=== PATIENT | female | born 1965 | race American Indian/Alaskan Native ===

== ENCOUNTER 2016-06-11 13:40 | Outpatient (CLI) | payer BC ==
--- NOTE | 2016-06-11 14:52 | Fluoroscopy Report ---
Modified barium swallow: History: Dysphagia. Findings: There is no anatomic obstruction noted to the flow of liquids, semisolid and solid food through cervical esophagus. No aspiration noted. Additional information would be provided by speech therapist. Impression: Findings as detailed above.
== END 2016-06-11 13:41 | disposition home or self-care (01) ==
LOC: PT 13:40
PROVIDERS: ATTEND Internal Medicine
DX: R13.10 Dysphagia, unspecified (principal)
CPT/HCPCS: 74230